=== PATIENT | male | born 1995 | race Caucasian/White ===

== ENCOUNTER 2023-02-13 17:20 | Emergency (ER) | payer OTHER ==
[~2023-02-13] VITALS: Ht 175.3 cm; Wt 68.7 kg
[2023-02-13 23:29] VITALS: BP 135/77; TEMP 99.3; O2SAT 99
[2023-02-13] MEDS ORDERED: IBUPROFEN 600MG TAB PO ONE (23:30)
== END 2023-02-14 03:27 | disposition left against medical advice (07) ==
LOC: M ED 17:20
DX: Z53.21 Procedure and treatment not carried out due to patient leaving prior to being seen by health care provider (principal)